=== PATIENT | female | born 1960 | race Caucasian/White ===

== ENCOUNTER 2016-08-27 10:57 | Day surgery (SDC) | payer MEDICAID ==
--- NOTE | 2016-08-27 00:14 | GHP ---
[f rep st] PREOP HISTORY AND PHYSICAL DATE OF ADMISSION: 08/27/2016 HISTORY: Upon admission, the patient is a 56-year-old, G3, P1, A2 with 2 issues. First, the patien t has had postmenopausal bleeding for the past approximate 8 months, but none recently since May 2016. The patient had an ultrasound performed for evaluation that showed the uterus 6 x 3.5 x 4 cm with an endometrial thickness of 0.75. There was question of a polyp in the endometrial thickness with fluid seen. The ovaries appeared normal bilaterally. The patient had an endometrial biopsy wh ich revealed inactive endometrial tissue with no pathology noted on the ectocervix tissue but PAULINO wi th JASE 2 noted at the end of cervical tissue with glandular dysplasia. DICTATION ENDED HERE /[id number]/MODL
--- NOTE | 2016-08-27 09:40 | GHP ---
[f rep st] PREOP HISTORY AND PHYSICAL DATE OF ADMISSION: 08/27/2016 The patient is slated for surgery by the THERAPIST PHYSICAL service on 08/27/2016. HISTORY OF PRESENTING PROBLEM: The patient is a 56-year-old, G3, P1, A2, with 2 issues: 1. She has had postmenopausal bleeding over the last 8-10 months, with none since May 2016. The patient had an ultrasound performed, which showed a normal uterus at 6 x 3.5 x 4 cm, with an endometrial thickness of 0.75 cm, with a questionable polyp, with a vascular stalk approximately 11 x 9 mm. The uterus is retroverted. On ultrasound, the ovaries appeared normal. An endometrial biopsy was performed, which showed inactive endometrium. It also showed endocervical tissue with HG PAULINO-JASE 2, and glandular dysplasia. The patient has been counseled about more thorough follow up with a hysteroscopy to assess if it is a polyp, to have direct removal for a more complete pathology. 2. The patient's second problem is cervical. The patient had a distant history 3-4 years ago of an abnormal Pap smear and in 1980 had external genital warts treated with cryotherapy. The patient most recently had a Pap smear in May 2016, showing MILES, favor neoplastic change with positive type 16 HPV. The patient had a colposcopy performed which was essentially benign on the ectocervix. There was no acetowhite change. 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 With the concern for these cells, the patient is counseled that we need to more completely remove the endocervix with conization for good sampling to further identify if there is cancerous change. The patient has been counseled about the risks and benefits of a cold knife conization, which can be done at the same time of hysteroscopy. For these 2 issues, the patient has been counseled thoroughly and is set up for hysteroscopy with a D and C, if needed, and a polypectomy followed by a cold knife conization. Risks and benefits discussed and the consent form signed. PAST MEDICAL HISTORY: The patient has asthma, especially worsened by colds, history of nocturia and stress incontinence, kidney stones, distant history of PCOS. Also history of anxiety and insomnia. PAST SURGICAL HISTORY: The patient had D and Cs in 1978 and 1984, and in 1996 a section. In 1980, the patient had a right knee arthroscopy. In 2009 , the patient had removal of kidney stones. PAST OBSTETRIC HISTORY: Two early losses, managed with D and C's. A term delivery in 1996 by section. ALLERGIES: The patient is allergic to azithromycin. The patient also gets irritated with adhesives that have colophony and requests paper tape. CURRENT MEDICATIONS: Anco-fhi-pelfdie supplements with black cohosh, vitamin D , and low-dose aspirin. SOCIAL HISTORY: The patient is not a smoker. No alcohol or drug use. RECENT TESTING: CBC in May 2016 was normal, as well as metabolic panel, and thyroid test was normal. Ultrasound as noted above. PHYSICAL EXAM: GENERAL: The patient is an overweight white female, in no physical distress. The patient's weight is 158 pounds. Her height is 63-1/4 inches. VITAL SIGNS: Blood pressure 110/68. The patient is clinically afebrile. HEENT: There is no thyromegaly. No adenopathy. LUNGS: Clear to auscultation bilaterally. CARDIOVASCULAR: Regular rate and rhythm. ABDOMEN: Soft and nontender. PELVIC: Revealed a normal appearing cervix and vaginal vault. On bimanual exam, there are no masses. The uterus and ovaries are palpably normal and nontender. EXTREMITIES: Nontender, no edema. ASSESSMENT: 1. Postmenopausal bleeding and thickened endometrium with signs consistent with a polyp. 2. 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 PLAN: The patient will proceed with a hysteroscopy, and D and C if needed, and polypectomy, as well as a cold knife conization. The patient will be given a preoperative antibiotic. /[id number]/MODL MTDD
[~2016-08-27 10:57] MED LIST: ACETIC ACID IRR SOLN 0.25% 1,000 ML BTL IRR ONE; LIDO/EPI 1% **for epidural** 30 ML SDV ONE; MONSELS-FERRIC SUBSULFATE 8 GM SDV TP ONE; SILVER NITRATE APPLICATOR 1 APPL TP ONE
[2016-08-27] MEDS ORDERED: LIDOCAINE 1% 2 ML INJ ONE (11:44)
[2016-08-27] MEDS ORDERED: LR 1,000 ML IV ONE (11:56)
[2016-08-27] MEDS ORDERED: LIDOCAINE 1% 5 ML SDV ID PRN (11:56)
[2016-08-27] MEDS ORDERED: MIDAZOLAM 2 MG/2 ML VIAL ONE (11:57)
[2016-08-27] MEDS ORDERED: cefOXitin SODIUM 1 GM in D5W 50 ML IV ONE (12:00)
[2016-08-27] MEDS ORDERED: fentaNYL 250 MCG/5 ML INJ ONE (12:02)
[2016-08-27] MEDS ORDERED: PROPOFOL/EMULSION 500 MG/50 ML BOTTLE IV ONE (12:02)
[2016-08-27] MEDS ORDERED: METOCLOPRAMIDE 10 MG/2 ML VIAL ONE (12:40)
[2016-08-27] MEDS ORDERED: DEXAMETHASONE 4 MG/ML VIAL ONE (12:40)
[2016-08-27] MEDS ORDERED: ONDANSETRON 4 MG/2 ML VIAL ONE (12:40)
[2016-08-27] MEDS ORDERED: LIDOCAINE 2% 5 ML SDV ONE (12:40)
[2016-08-27] MEDS ORDERED: KETOROLAC 30 MG/1 ML SDV ONE (12:40)
[2016-08-27] MEDS ORDERED: epHEDrine SULFATE 10 MG/ML SYR ONE (13:03)
--- NOTE | 2016-09-01 04:52 | GOP ---
[f rep st] OPERATIVE REPORT DATE OF OPERATION: 08/27/2016 SURGEON: Ngoc Vance MD ANESTHESIA: Audra Martínez MD, with laryngeal mask. PREOPERATIVE DIAGNOSIS: 1. Postmenopausal bleeding. 2. Thickened endometrium. 3. Adenocarcinoma in situ of the cervix. POSTOPERATIVE DIAGNOSIS: 1. Postmenopausal bleeding. 2. Thickened endometrium. 3. Adenocarcinoma in situ of the cervix. 4. Uterine polyp. PROCEDURE PERFORMED: 1. Hysteroscopy with polypectomy. 2. Cold knife conization. FINDINGS: INDICATIONS: The patient is a 56-year-old, G3, P1, A2, with a history of postmenopausal bleeding fo r the last 8-10 months, with an ultrasound showing endometrial thickness of 0.7 cm, with an otherwis e normal uterus and ovaries. Endometrial biopsy was inactive endometrium. The patient also has had concerns with her Pap smears. A Pap smear in May 2016 showed MILES, favoring neoplastic change with positive type 16 HPV. The patient had a colposcopy performed, and the endocervical curettings showed glandular dysplasia with possibly adenocarcinoma in situ with HGSIL, JASE 2. With these kim rning cells, the patient was counseled that we needed to get more tissue to fully rule out invasive cancer, and the patient was counseled to have a cold knife conization. The patient was advised as t o the risks and benefits, and the consent form signed. DESCRIPTION OF PROCEDURE: The patient was taken to the operating room, where following satisfactory laryngeal mask anesthesia, the patient was placed in dorsal lithotomy position. The patient had ur inated prior to coming to the operating room. The patient had SCDs on her lower extremities. The p atient was given a dose of antibiotics before the anesthesia. A sterile speculum was placed within the vagina. An atraumatic tenaculum was placed on the anterior lip of the cervix and gentle tractio n was used, while the cervix was easily dilated up to 6.5 Hegar dilator. The TruClear scope was use d and good visualization obtained. There was a uterine polyp noted and otherwise an atrophic-appear ing lining. The cavity appeared normal. The polyp was removed under direct visualization with morc ellation. There was no injury to the interior of the uterus. The fluid deficit on the hysteroscopy was 100 mL. Following this, the conization was performed. Stay sutures at [address] aced with 0 Vicryl. The cold knife conization was done without complication. Bovie cautery and Mon guru solution were done after the conization and good hemostasis was obtained. The patient tolerated the procedure well. Estimated blood loss 25 cc with both procedures, total. The specimens included the uterine morcella micheal tissue, including a polyp and the conization specimen of the cervix. There were no complication s. The patient was awakened and taken out of position, and taken to the recovery room in stable con dition. /[id number]/MODL
== END 2016-08-27 15:35 | disposition home health service (06) ==
LOC: FSGY 10:57
PROVIDERS: ATTEND Obstetrics & Gynecology
DX: D06.9 Carcinoma in situ of cervix, unspecified (principal); N84.0 Polyp of corpus uteri; N95.0 Postmenopausal bleeding; R93.8 Abnormal findings on diagnostic imaging of other specified body structures; R87.810 Cervical high risk human papillomavirus (HPV) DNA test positive
CPT/HCPCS: 57520; 58558; C1782; J0697; J1100; J1885; J2250; J2405; J2704; J2765; J3010

== ENCOUNTER → 2018-03-03 | Outpatient (CLI) | payer MEDICAID | LOC: BMCIMAGING 15:12 | PROVIDERS: ATTEND Internal Medicine | DX: R05 Cough (principal) ==